=== PATIENT | male | born 1995 | race American Indian/Alaskan Native ===

== ENCOUNTER 2021-05-25 17:53 | Emergency (ER) | payer MEDICAID ==
[2021-05-25 18:04] VITALS: BP 119/80
--- NOTE | 2021-05-25 18:56 | Emergency Department Report ---
ED Back Pain/Injury HPI - General Chief Complaint: Back Pain/Injury Stated Complaint: Back Pain Time Seen by Provider: 05/25/21 18:43 Source: patient Limitations: No Limitations - History of Present Illness Initial Comments: Patient is a 26-year-old male presents emergency room complaints of low back pain that began today. He denies any fall or injury. He denies any heavy lif ting. He states his pain is worse with movement. He denies any radiation of the pain. He denies any fever, abdominal pain, nausea, vomiting, diarrhea, urinary symptoms, dark urine, hematuria. Patient denies any past medical history or daily medications. No allergies to medications. - Related Data Previous Rx's Medication Instructions Recorded Last Taken Type Menthol/Camphor [[place] 1 applicatio TP BID #18 oint...g. 05/25/21 Unknown Rx Ointment] Naproxen 375 mg PO BID PRN #14 tablet 05/25/21 Unknown Rx methOCARBAMOL [Robaxin TAB] 500 mg PO BID PRN #14 tab 05/25/21 Unknown Rx Allergies Allergy/AdvReac Type Severity Reaction Status Date / Time No Known Allergies Allergy Verified 05/25/21 18:00 ED Review of Systems ROS: Stated complaint: Back Pain Other details as noted in HPI Comment: All other systems reviewed and negative ED Past Medical Hx - Medications Home Medications: Home Medications Medication Instructions Recorded Confirmed Last Taken Type Menthol/Camphor [[place] 1 applicatio TP BID #18 oint...g. 05/25/21 Unknown Rx Ointment] Naproxen 375 mg PO BID PRN #14 tablet 05/25/21 Unknown Rx methOCARBAMOL [Robaxin TAB] 500 mg PO BID PRN #14 tab 05/25/21 Unknown Rx ED Physical Exam - General Limitations: No Limitations General appearance: alert, in no apparent distress - Head Head exam: Present: atraumatic, normocephalic - Eye Eye exam: Present: normal appearance - ENT ENT exam: Present: mucous membranes moist - Neck Neck exam: Present: normal inspection, full ROM. Absent: tenderness, meningismus - Respiratory Respiratory exam: Present: normal lung sounds bilaterally. Absent: respiratory distress, wheezes, rales, rhonchi, stridor, chest wall tenderness, accessory muscle use, decreased breath sounds, prolonged expiratory - Cardiovascular Cardiovascular Exam: Present: regular rate, normal rhythm, normal heart sounds. Absent: systolic murmur, diastolic murmur, rubs, gallop - Back Exam Back exam: Present: normal inspection, full ROM, paraspinal tenderness (right sided lumbar paraspinal muscular ttp, no midline c-spine, t-spine or l-spine ttp, no step offs, no deformities). Absent: vertebral tenderness - Neurological Exam Neurological exam: Present: alert, oriented X3, CN II-XII intact, normal gait. Absent: motor sensory deficit - Psychiatric Psychiatric exam: Present: normal affect, normal mood - Skin Skin exam: Present: warm, dry, intact ED Course Vital Signs 05/25/21 18:02 Temperature 98.2 F Pulse Rate 75 Respiratory 14 Rate Blood Pressure 119/80 [Right] O2 Sat by Pulse 100 Oximetry ED Medical Decision Making - Medical Decision Making Patient is a 26-year-old male presents emergency room complaints of low back pain that began today. He denies any fall or injury. He denies any heavy lifting. He states his pain is worse with movement. He denies any radiation of the pain. He denies any fever, abdominal pain, nausea, vomiting, diarrhea, urinary symptoms, dark urine, hematuria. Patient denies any past medical history or daily medications. No allergies to medications. Vitals are normal. On exam:right sided lumbar paraspinal muscular ttp, no midline c-spine, t-spine or l-spine ttp, no step offs, no deformities, no focal neuro deficits, ambulatory with out difficulty. Patient has no red flag warning signs of back pain, no trauma, no unexplained weight loss, no fever, no IV drug use, no steroid use, no history of cancer, age is not greater than 50, no neuro deficits. Patient given prescription for medication. Advised patient Please use medication as prescribed. May use ice pack, heating pad, rest, and epsom salt bath. Do not use heat or ice while using [place] bal[place]. Follow-up with your primary care doctor. Follow-up with a labeling specialist. Return to emergency room for any new or worsening symptoms. Critical care attestation.: If time is entered above; I have spent that time in minutes in the direct care of this critically ill patient, excluding procedure time. ED Disposition Clinical Impression: Low back pain Qualifiers: Chronicity: acute Back pain laterality: right Sciatica presence: without sciatica Qualified Code(s): M54.50 - Low back pain, unspecified Disposition: 01 HOME / SELF CARE / HOMELESS Is pt being admited?: No Does the pt Need Aspirin: No Condition: Stable Instructions: Acute Back Pain, Adult Additional Instructions: Please use medication as prescribed. May use ice pack, heating pad, rest, and epsom salt bath. Do not use heat or ice while using [place] balm. Follow-up with your primary care doctor. Follow-up with a labeling specialist. Return to emergency room for any new or worsening symptoms. Prescriptions: Naproxen 375 mg PO BID PRN #14 tablet PRN Reason: pain methOCARBAMOL [Robaxin TAB] 500 mg PO BID PRN #14 tab PRN Reason: pain/muscle spasm Menthol/Camphor [[place] Ointment] 1 applicatio TP BID #18 oint...g. Referrals: NIKOLE SANCHEZ MD [Staff Physician] - 3-5 Days [facility] [Provider Group] - 3-5 Days [facility] [Provider Group] - 3-5 Days NIKHIL MONTAGUE II, MD [Staff Physician] - 3-5 Days (labeling specialist) Forms: Work/School Release Form(ED) Time of Disposition: 18:54 Print Language: ICELANDIC
== END 2021-05-26 06:39 | disposition home or self-care (01) ==
LOC: ED 17:53
DX: M54.50 Low back pain, unspecified (principal)
CPT/HCPCS: 99281